=== PATIENT | female | born 1980 | race African-American/Black ===

== ENCOUNTER 2017-07-17 11:22 | Emergency (ER) | payer MEDICAID ==
[2017-07-17] MEDS ORDERED: KETOROLAC TROMETHAMINE 60 MG/2 ML SDV IM ONE (13:00)
[2017-07-17] MEDS ORDERED: DEXAMETHASONE SOD PHOS INJ 10 MG/1 ML VIAL IM ONE (13:00)
--- NOTE | 2017-07-17 13:05 | ER Document Report ---
ED Neck/Back Problem - General Chief Complaint: Back Injury Stated Complaint: RIB PAIN Time Seen by Provider: 07/17/17 12:17 Mode of Arrival: Ambulatory Information source: Patient Notes: 36-year-old female presents to ED for complaint of back pain mostly on the right from mid down to buttocks down the right leg 2 weeks. She denies any fall injury or lifting anything. She denies any loss of control of bowel bladder, loss of sensation to the saddle region, loss of control of legs or loss of sensation to the legs. She is being treated by the [facility] for neck pain. I have instructed her to follow-up with them concerning this pain also. TRAVEL OUTSIDE OF THE [place] IN LAST 30 DAYS: No - HPI Patient complains to provider of: Pain, Lower back Onset: Other - 2 weeks Onset: Gradual Timing: Waxing and waning Quality of pain: Sharp Severity: Moderate Pain Level: 3 Recent injury: No Associated symptoms: Radiation to leg, Lower back pain. denies: Constipation, Fever, Like prior neck/back pain - Usually pain is in her upper back and neck this is in her mid to lower back down her right leg, Motor loss, Numbness/ tingling, Radiation to arm, Radiation to chest, Sensory loss, Unable to urinate , Upper back pain Exacerbated by: Nothing Relieved by: Nothing Similar symptoms previously: Yes Recently seen / treated by doctor: Yes - In her neck but not lower back - Related Data Allergies/Adverse Reactions: amoxicillin [Amoxicillin] Allergy (Verified 07/17/17 11:31) gabapentin [From Neurontin] Allergy (Verified 07/17/17 11:32) daquan Allergy (Verified 07/17/17 11:32) morphine [Morphine] Allergy (Verified 07/17/17 11:31) Past Medical History - General Information source: Patient - Social History Smoking Status: Never Smoker Cigarette use (# per day): No Chew tobacco use (# tins/day): No Smoking Education Provided: No Frequency of alcohol use: Occasional Drug Abuse: None Lives with: Family Family History: Reviewed & Not Pertinent Patient has suicidal ideation: No Patient has homicidal ideation: No - Past Medical History Cardiac Medical History: Reports: None Pulmonary Medical History: Reports: Hx Asthma EENT Medical History: Reports: None Neurological Medical History: Reports: None Endocrine Medical History: Reports: None Renal/ Medical History: Reports: None Malignancy Medical History: Reports: None GI Medical History: Reports: None Musculoskeltal Medical History: Reports Hx Musculoskeletal Deformity Skin Medical History: Reports None Psychiatric Medical History: Reports: Hx Bipolar Disorder, Hx Schizophrenia Traumatic Medical History: Reports: None Infectious Medical History: Reports: None Past Surgical History: Reports: Hx Tubal Ligation - Immunizations Immunizations up to date: Yes Hx Diphtheria, Pertussis, Tetanus Vaccination: Yes Review of Systems - Review of Systems Constitutional: No symptoms reported EENT: No symptoms reported Cardiovascular: No symptoms reported Respiratory: No symptoms reported Gastrointestinal: No symptoms reported Genitourinary: No symptoms reported Female Genitourinary: No symptoms reported Musculoskeletal: Back pain, Muscle pain, Muscle stiffness Skin: No symptoms reported Hematologic/Lymphatic: No symptoms reported Neurological/Psychological: Other - Sciatic type nerve pain in the right leg -: Yes All other systems reviewed and negative Physical Exam - Vital signs Vitals: Temp Pulse Resp BP Pulse Ox 98.5 F 86 16 110/63 97 07/17/17 11:32 07/17/17 11:32 07/17/17 11:32 07/17/17 11:32 07/17/17 11:32 Interpretation: Normal - General General appearance: Appears well, Alert - HEENT Head: Normocephalic, Atraumatic Eyes: Normal Pupils: PERRL - Respiratory Respiratory status: No respiratory distress Chest status: Nontender Breath sounds: Normal Chest palpation: Normal - Cardiovascular Rhythm: Regular Heart sounds: Normal auscultation Murmur: No - Abdominal Inspection: Normal Distension: No distension Bowel sounds: Normal Tenderness: Nontender Organomegaly: No organomegaly - Back Back: Normal, Tender - Right lower to mid back down the right leg. No: Deformity/step-off, CVA tenderness, Vertebra tenderness, Scars, Scoliosis, Wounds - Extremities General upper extremity: Normal inspection, Nontender, Normal color, Normal ROM , Normal temperature General lower extremity: Normal inspection, Nontender, Normal color, Normal ROM , Normal temperature, Normal weight bearing. No: Angie's sign - Neurological Neuro grossly intact: Yes Cognition: Normal Orientation: AAOx4 Jayne Coma Scale Eye Opening: Spontaneous Drake Coma Scale Verbal: Oriented Jayne Coma Scale Motor: Obeys Commands Jayne Coma Scale Total: 15 Speech: Normal Motor strength normal: LUE, RUE, LLE, RLE Sensory: Normal - Psychological Associated symptoms: Normal affect, Normal mood - Skin Skin Temperature: Warm Skin Moisture: Dry Skin Color: Normal Course - Re-evaluation Re-evalutation: 07/17/17 13:09 Patient treated with Toradol and Decadron and instructed to follow-up with her primary doctor and her pain management doctor at [facility] it [place]. She states she has 600 mg ibuprofen at home that she gets from the pain center. Instructed her to use these as well as Tylenol ice packs and warm packs. Also gave her instruction for exercises for the low back. - Vital Signs Vital signs: Temp Pulse Resp BP Pulse Ox 98.5 F 86 16 110/63 97 07/17/17 11:32 07/17/17 11:32 07/17/17 11:32 07/17/17 11:32 07/17/17 11:32 Discharge - Discharge Clinical Impression: Low back pain Qualifiers: Chronicity: acute Back pain laterality: right Sciatica presence: with sciatica Sciatica laterality: sciatica of right side Qualified Code(s): M54.41 - Lumbago with sciatica, right side Condition: Stable Disposition: HOME, SELF-CARE Additional Instructions: LOW BACK PAIN: Three out of every four people will have an episode of disabling back pain during their lifetime. Most commonly the pain is due to straining of the muscles and ligaments in the low back. Usual treatment includes: (1) Rest on a firm surface. Avoid lying on your stomach. (2) Ice pack the painful area. After a few days, gentle heat may be used intermittently to relax the area, or ice packs can be continued. (3) Medication may be needed -- muscle relaxers and antiinflammatory medicines are commonly used. (4) As the back improves, exercises are prescribed to strengthen the back and abdominal muscles. Your doctor will advise you on the proper care for your back at each stage in your recovery. You may be better in a few days -- or healing may take several weeks. If new symptoms of a "herniated disc" (radiation of pain, numbness, or tingling down the back of the leg or weakness in the leg) occur, you should be re-examined. Further testing may be necessary. STEROID MEDICATION: You have been given an injection of medicine of the cortisone/steroid class. This medication is used to control inflammation or allergy. It is often continued as a pill for a short period of time, until the acute process subsides. There are usually no side effects from short-term use of cortisone-like medications. Some persons feel an increased sense of well-being and are not sleepy at bedtime. Long-term use of cortisone medications is best avoided, unless required for a severe condition. If your condition does not remit, or relapses after the course of corticosteroid medication, you should consult your physician. Toradol Injection You have been given an injection of ketorolac tromethamine (Toradol). This is an excellent, safe drug for pain control. It also has potent antiinflammatory action. You should have significant pain relief within about one hour. Toradol is not addicting and is non-sedating. It does not interfere with driving or work. Call or return if you develop itching, hives, shortness of breath, or rash. Stretching Exercises for the Back The physician has recommended that you begin stretching exercises for your back. These are often used even while the back is painful. However, you should notify the physician if the activities seem to increase your pain. PELVIC TILT: Lie flat on your back with knees bent. Tighten your stomach and buttock muscles so it flattens your lower back against the floor. Hold 10 seconds. Repeat 10 times, twice daily. KNEE RAISE: Lying on the back with knees bent, raise one knee to your chest, then the other. Hold both knees against the chest 10 seconds, then lower one knee at a time. Repeat 10 times, twice daily. PARTIAL TRUNK RAISE: Lie face down, arms at your sides. Keeping your waist on the floor, use your arms raise your chest up. Support yourself on your elbows for 30 seconds. Repeat twice daily, increasing the time to two minutes as you recover. ICE PACKS: Apply ice packs frequently against the painful area. Many different schedules are recommended, such as "20 minutes on, 20 minutes off" or "one hour ice, two hours rest." If you need to work, you may need to go longer between ice treatments. You should plan to have the area ice packed AT LEAST one fourth of the time. The ice should be applied over the wrap, tape, or splint, or over a layer of cloth -- not directly against the skin. Some ice bags have a built-in cloth and can be put directly on the skin. WARM PACKS: After approximately two days, apply gentle heat (such as a heating pad or hot water bottle) for about 20 to 30 minutes about every two hours -- at least four times daily. Warmth and elevation will help you make a more rapid recovery , and will ease the pain considerably. Do not use HOT heat, and never apply heat for longer than 30 minutes. The continuous heat can invisibly damage skin and muscles -- even when no burn is seen on the surface. Damaged muscles can make you MORE sore. FOLLOW-UP CARE: If you have been referred to a physician for follow-up care, call the physician s office for an appointment as you were instructed or within the next two days. If you experience worsening or a significant change in your symptoms, notify the physician immediately or return to the Emergency Department at any time for re-evaluation. Please call [facility] on Tuesday and schedule follow-up appointment for your lower back pain. Usually ibuprofen that you have for your back pain it will help this pain also use the stretching exercises that I have given you above and use the ice and warm packs as I described.
[2017-07-17 13:16] VITALS: BP 114/72
== END 2017-07-17 13:18 | disposition home or self-care (01) ==
LOC: ER 11:22
DX: M54.41 Lumbago with sciatica, right side (principal); Z88.6 Allergy status to analgesic agent; Z88.0 Allergy status to penicillin
CPT/HCPCS: 99283; 96372; J1885; J1100

== ENCOUNTER 2018-05-19 16:56 | Emergency (ER) | payer MEDICAID ==
[2018-05-19] MEDS ORDERED: KETOROLAC TROMETHAMINE 60 MG/2 ML SDV IM ONE (18:13)
--- NOTE | 2018-05-19 18:45 | RADIOLOGY REPORT (SQ) ---
EXAM DESCRIPTION: HIP RIGHT AP/LATERAL COMPLETED DATE/TIME: 05/19/2018 6:28 pm REASON FOR STUDY: righ hip pain COMPARISON: None. NUMBER OF VIEWS: Two views. TECHNIQUE: AP pelvis and additional frog-leg view of the right hip. LIMITATIONS: None. FINDINGS: MINERALIZATION: Normal. RIGHT HIP: No fracture or dislocation. No worrisome bone lesions. LEFT HIP: No fracture or dislocation. No worrisome bone lesions. PUBIS AND ISCHIUM: No fracture. PELVIS: No fracture. SACRUM: No fracture or dislocation. No worrisome bone lesions. LOWER LUMBAR SPINE: No fracture or dislocation. No worrisome bone lesions. No significant disc disea se. SOFT TISSUES: No findings. OTHER: No other significant finding. IMPRESSION: NEGATIVE STUDY OF THE RIGHT HIP. NO RADIOGRAPHIC EVIDENCE OF ACUTE INJURY. TECHNICAL DOCUMENTATION: JOB ID: [id number] [employer]- All Rights Reserved Reading location - IP/workstation name: [email or web address]
--- NOTE | 2018-05-19 20:11 | ER Document Report ---
ED Hip Pain/Injury - General Chief Complaint: Hip Pain Stated Complaint: RIGHT HIP PAIN Time Seen by Provider: 05/19/18 18:06 Mode of Arrival: Ambulatory Information source: Patient, Relative Notes: Patient is a 37-year-old female comes emergency room complaint right hip pain. The pain actually seems to stem from the right groin. Patient states that is very difficult to walk on her stand or even sit. She states that 3 days ago she was standing went to turn and her right foot was anchored and she twisted and felt a pop in her right groin. She had increased pain ever since then. She denies any other known injuries and denies any falls. Patient has only a history of psych which is bipolar disorder with depression. Last menstrual period was on through 10 May. TRAVEL OUTSIDE OF THE [place] IN LAST 30 DAYS: No - HPI Patient complains to provider of: Injury, Pain, Hip Occurred: Other - 3 days ago Where: Home Onset/Duration: Sudden, Persistent Quality of pain: Sharp, Throbbing Severity: Moderate Pain Level: 3 Context: Other - Twisting Symptoms prior to fall: None Skin Color: Normal Skin Temperature: Warm Rotation of extremity: Inward Pain with palpation of the pelvis: Yes Associated Symptoms: None - Related Data Allergies/Adverse Reactions: amoxicillin [Amoxicillin] Allergy (Verified 05/19/18 17:03) gabapentin [From Neurontin] Allergy (Verified 05/19/18 17:03) daquan Allergy (Verified 05/19/18 17:03) morphine [Morphine] Allergy (Verified 05/19/18 17:03) Past Medical History - General Information source: Patient, Relative - Social History Smoking Status: Former Smoker Cigarette use (# per day): No Chew tobacco use (# tins/day): No Smoking Education Provided: No Frequency of alcohol use: about 4 times a month Drug Abuse: None Lives with: Family Family History: Reviewed & Not Pertinent Patient has suicidal ideation: No Patient has homicidal ideation: No Pulmonary Medical History: Reports: Hx Asthma Renal/ Medical History: Denies: Hx Peritoneal Dialysis Musculoskeletal Medical History: Reports Hx Musculoskeletal Deformity Psychiatric Medical History: Reports: Hx Bipolar Disorder, Hx Schizophrenia Past Surgical History: Reports: Hx Tubal Ligation - Immunizations Immunizations up to date: Yes Hx Diphtheria, Pertussis, Tetanus Vaccination: Yes Review of Systems - Review of Systems Constitutional: No symptoms reported EENT: No symptoms reported Cardiovascular: No symptoms reported Respiratory: No symptoms reported Gastrointestinal: No symptoms reported Genitourinary: No symptoms reported Female Genitourinary: No symptoms reported Musculoskeletal: Joint pain, Joint swelling, Muscle pain, Muscle stiffness Skin: No symptoms reported Hematologic/Lymphatic: No symptoms reported Neurological/Psychological: No symptoms reported -: Yes All other systems reviewed and negative Physical Exam - Vital signs Vitals: Temp Pulse BP Pulse Ox 97.8 F 73 119/64 98 05/19/18 17:13 05/19/18 17:13 05/19/18 17:13 05/19/18 17:13 Interpretation: Normal - Notes Notes: Well-nourished well-developed 37-year-old obese female. - HEENT Head: Normocephalic, Atraumatic Eyes: Normal - Respiratory Respiratory status: No respiratory distress Chest status: Nontender. No: No pleuritic chest pain, Pain with deep breathing Breath sounds: Normal. No: Decreased air movement, Productive cough, Rales, Rhonchi, Stridor, Wheezing Chest palpation: Normal - Cardiovascular Rhythm: Regular Heart sounds: Normal auscultation Murmur: No - Abdominal Inspection: Normal Distension: No distension Bowel sounds: Normal Tenderness: Nontender Organomegaly: No organomegaly. No: Hepatomegaly, Splenomegaly Adult front & back diagram: 1 - Area of tenderness to palpation. - Back Back: Normal, Nontender - Extremities General upper extremity: Normal inspection, Nontender, Normal ROM, Normal strength General lower extremity: Tender, Normal color, Normal temperature. No: Normal inspection, Edema, Normal ROM, Normal strength, Normal weight bearing, Angie's sign Hip: Tender, Pain with ROM, Other - Examination patient's right hip shows her to be sitting on the cot. Legs extended. Left leg looks slightly lower than the right leg. But is not rotated internally or externally. Patient has good popliteal pulse on the right knee. Palpation of the anterior groin shows moderate amount of tenderness reproduced to the palpation. The pain distribution seems to run along the groin and into the iliac crest area. There is no sciatic pain and there is no posterior back pain no buttocks pain. All seems to be standardized right in the right hip area. There is a good pulse in the femoral pulse. No other abnormalities found. Although there is loss of strength against resistance to lifting the leg. It appears either to be a strain groin or hip flexor muscle.. No: Abrasion, Deformity, Dislocation, Ecchymosis, Instability, Laceration, Unable to bear weight Course - Re-evaluation Re-evalutation: 05/19/18 21:11 I have placed patient on a muscle relaxer some steroids and pain medication. I have instructed her to wear either a girdle or biking shorts. And have told her to follow-up with orthopedic on Tuesday if not getting better. Also told her to come back to ER over the weekend if it were to progressively get worse. - Vital Signs Vital signs: Temp Pulse Resp BP Pulse Ox 98.6 F 65 18 103/57 L 99 05/19/18 20:35 05/19/18 20:35 05/19/18 20:35 05/19/18 20:35 05/19/18 20:35 Discharge - Discharge Clinical Impression: Strain of right hip Qualifiers: Encounter type: initial encounter Qualified Code(s): S76.011A - Strain of muscle, fascia and tendon of right hip, initial encounter Hip flexor tendinitis Qualifiers: Laterality: right Qualified Code(s): M76.891 - Other specified enthesopathies of right lower limb, excluding foot Condition: Stable Disposition: HOME, SELF-CARE Instructions: Inguinal Strain ([facility]), Muscle Strain ([facility]), Tendon Strain ([facility]) Additional Instructions: Home and rest. Ice to the area 3 times a day as we discussed. Light stretching also as we discussed. This could be a tendinitis could be a hip flexor strain may take some time for her to get better. Highly suggest that you contact the orthopedist that this is still bothering you on Tuesday or Tuesday. As we also discussed you may wear a girdle which will help with this and/or biking shorts will give some support as well. At this point since his been 3 days he may also be is a whirlpool or moist heat. Should you have any concerns or problems return to ER for recheck. Prescriptions: Cyclobenzaprine HCl [Flexeril 10 mg Tablet] 10 mg PO TIDP PRN #21 tablet PRN Reason: Hydrocodone/Acetaminophen [Chandler 5-325 mg Tablet] 1 tab PO Q6 #8 tablet Prednisone [Sterapred Ds] 10 mg PO ASDIR PRN #1 tab.ds.pk PRN Reason: Referrals: SHAGGY CISSE, [facility] [Primary Care Provider] - Follow up as needed
[2018-05-19 20:39] VITALS: BP 103/57
== END 2018-05-19 20:40 | disposition home or self-care (01) ==
LOC: ER 16:56
DX: S76.011A Strain of muscle, fascia and tendon of right hip, initial encounter (principal); M76.891 Other specified enthesopathies of right lower limb, excluding foot; X50.0XXA Overexertion from strenuous movement or load, initial encounter; Y92.009 Unspecified place in unspecified non-institutional (private) residence as the place of occurrence of the external cause; Z88.0 Allergy status to penicillin; Z88.6 Allergy status to analgesic agent; Z98.51 Tubal ligation status
CPT/HCPCS: 99283; 96372; 73502; J1885

== ENCOUNTER 2019-03-22 10:45 | Emergency (ER) | payer MEDICAID ==
[2019-03-22] MEDS ORDERED: KETOROLAC TROMETHAMINE 60 MG/2 ML SDV IM ONE (11:53)
[2019-03-22 11:58] VITALS: BP 109/66
--- NOTE | 2019-03-22 12:36 | ER Document Report ---
HPI - HPI Patient complains to provider of: right neck pain Time Seen by Provider: 03/22/19 11:37 Onset: Other - 2 weeks Onset/Duration: Constant, Persistent Quality of pain: Burning, Cramping Severity: Moderate Pain Level: 3 Context: 38-year-old female with a history of bulging discs in her neck here for acute exacerbation of her chronic neck pain that radiates down her right arm for 2 weeks. She was previously on pain management a year or so ago and now is awaiting to get back into pain management again for her chronic neck pain. She states her symptoms have been worse for the last 2 weeks. Denies any new injury or trauma. Feels like her usual flareups when they happen, nothing different. pain just isn't controlled with otc meds any longer. She states that when she was on pain management she is on oxycodone and that worked well. She also takes Valium 5 mg 3 times daily and has been on for many years. She states the valium alone isn't helping her pain much but does some. She does have a TENS unit. She states the earliest that pain management could get her back in was April 16 and she is just here requesting some pain control until she get into pain management again. No numbness, tingling, or weakness. No spinal surgeries. No fever, headache or rash. No recent illness and no other changes in medication or diet. No vision changes or other changes in neurologic or ams. Pain worse with movement and palpation. Better with rest. No other complaints at this time. denies . no pain anywhere else. hasn't sought care until now. states when she has come in here before they gave her a toradol shot and that helped and she would like another one today. denies iv drug use. she is right handed. states steroids don't help. Exacerbated by: Movement Relieved by: Remaining still Similar symptoms previously: Yes Recently seen / treated by doctor: No - ROS Systems Reviewed and Negative: Yes All other systems reviewed and negative - to include 10 systems, unless mentioned in the hpi - REPRODUCTIVE Reproductive: DENIES: : Past Medical History - General Information source: Patient, [facility], [facility] Records - Social History Smoking Status: Unknown if Ever Smoked Frequency of alcohol use: None Drug Abuse: None Family History: Reviewed & Not Pertinent Patient has suicidal ideation: No Patient has homicidal ideation: No - Past Medical History Cardiac Medical History: Reports: Hx Hypertension Pulmonary Medical History: Reports: Hx Asthma Neurological Medical History: Reports: None Endocrine Medical History: Denies: Hx Diabetes Mellitus Type 1, Hx Diabetes Mellitus Type 2 Renal/ Medical History: Denies: Hx Peritoneal Dialysis Musculoskeletal Medical History: Reports Hx Arthritis, Reports Hx Muscle Spasm, Reports Other - Degenerative disc diseace, chronic right cervical radiculopathy Psychiatric Medical History: Reports: Hx Bipolar Disorder, Hx Schizophrenia Past Surgical History: Reports: Hx Tubal Ligation - Immunizations Immunizations up to date: Yes Hx Diphtheria, Pertussis, Tetanus Vaccination: Yes Vertical Provider Document - CONSTITUTIONAL Exam Limitations: No Limitations Notes: >>>> PHYSICAL_EXAM: GENERAL_APPEARANCE: well_nourished, alert, cooperative, no_acute_distress, mild_obvious_discomfort. pleasant, obese young black female, smiling, speaking in full sentences, in no sign of resp distress, appears uncomfortable with movement of her neck but othewise not toxic. VITALS: reviewed, see vital signs table. HEAD: no_swelling\tenderness on the head. normocephalic. atraumatic. no rodrigues signs. no raccoons eyes. EARS: canals_clear_bilat, TMs_clear. no hemotympanum EYES: PERRL, EOMI, conjunctiva_clear. NOSE: no_nasal_discharge. MOUTH: (-)decreased moisture. THROAT: no_tonsilar_inflammation, no_airway_obstruction. no_lymphadenopathy NECK: supple, no midline neck_tenderness, no step-offs or deformities. There is tenderness to palpation of the right paracervical musculature. Spasm noted. Palpation here represents patient's exactly. Slight decreased range of motion in her neck on lateral bending and rotation secondary only to pain. No torticollis. No sign of Adrian's or mastoiditis. (-)thyromegaly. full strength. no jvd. no carotid bruit. no meningeal signs. no sign of central cord syndrome. BACK: no_back_tenderness. CHEST_WALL: no_chest_tenderness. no overlying skin changes LUNGS: no_wheezing, ctab (-)accessory muscle use, good air exchange bilateral. HEART: normal_rate, normal_rhythm, ABDOMEN: normal_BS, soft, no_abd_tenderness, (-)guarding, (-)rebound, no distension or peritoneal signs. no cva ttp EXTREMITIES: strength 5/5 in all_extremities, good pulses in all_extremities, no_swelling\tenderness in the extremities, no_edema. full rom. normal gait. good pulses. brisk cap refill. 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 neg drop can test. neg speed and yergason tests. no atrophy. NEURO: motor and sensation intact, cranial nerves 2-12 intact, cerebellar fxn intact, reflexes wnl SKIN: warm, dry, good_color, no_rash. no grossly visible overlying skin changes to suggest trauma. MENTAL_STATUS: speech_clear, oriented_X_3, normal_affect, responds_appropriately to questions. - INFECTION CONTROL TRAVEL OUTSIDE OF THE [place] IN LAST 30 DAYS: No Course - Re-evaluation Re-evalutation: 03/22/19 12:36 Pt here for an acute exacerbation of her chronic right-sided neck pain with radiculopathy, nothing new, same exact sx when it flares up, no fall or trauma. pain just not controlled with otc meds. she is now waiting to get back into pain management-has an apt apr 16 and states that's the soonest they could get her in. She improved with Toradol here. She is neuro nonfocal. Pain reproducible in the musculature and likely musculoskeletal. She has a TENS unit at home she can continue to take. Ice/heat to the area. will dc with just a few vicodin. ga ve medication precautions for this. advised of our narcotic policy and advised this would likely be the last time she got narcotic pain meds for this complaint here and stressed the importance of f/u with pain management closely without fail. Secondary to her already being on valium, i told her i do not feel comfortable prescribing her any another muscle relaxers in addition to this due to concern for respiratory depression. she refused steroids. advised to f/u with pcp/pain management in 1-2 days. return for any worsening symptoms. vss. well appearing. satting well on ra. neurononfocal. pt understands and agrees to plan. according to the [place] drug monitoring database, she gets monthly Valium 5 mg #90 with the last being 02/15/2019, the last time she got Vicodin was 05/20/2018 for 8 Vicodin, she got Percocet 7.5 mg #60 back in November 2017 however no other pain medicine since. On reexam, pt improved with tx listed. remained stable. nontoxic. well appearing. pain controlled. tolerating po. requesting to go home. neurononfocal. no sign of spinal cord involvement, cauda equina, or central cord syndrome. Documentation achieved through voice recording which my lead to some occasional accidental typographical errors. Extensive efforts have been made to proof read documentation to make sure these are the least as possible. Category Date Time Status Ketorolac Tromethamine [Toradol Inj/Pf 60 mg/2 ml Sdv] Med 03/22/19 11:53 Discontinued 60 mg IM NOW ONE - Vital Signs Vital signs: Temp Pulse Resp BP Pulse Ox 97.7 F 66 20 109/66 98 03/22/19 11:57 03/22/19 11:57 03/22/19 11:57 03/22/19 11:57 03/22/19 11:57 03/22/19 12:42 Temp Pulse Pulse Resp BP BP Pulse Ox 03/22/19 11:57 97.7 F 66 20 109/66 98 03/22/19 11:18 97.8 F 70 20 106/62 96 Discharge - Discharge Clinical Impression: Right cervical radiculopathy Condition: Good Disposition: HOME, SELF-CARE Instructions: Radiculopathy ([facility]) Additional Instructions: Ice/heat to your neck. Continue to use your TENS unit. Do not drive, take Tylenol, operate machinery, or work while taking the Vicodin. you can continue to use your Valium as prescribed as needed for muscle relaxation. Call your pain management doctor for a sooner appointment. Follow-up with PCP/pain management in 1 to 2 days. Return for any worsening symptoms. Prescriptions: Hydrocodone/Acetaminophen [[place] 5-325 mg Tablet] 1 tab PO Q6 PRN #10 tablet PRN Reason: For Pain Referrals: SHAGGY CISSE FNP [Primary Care Provider] - Follow up as needed
== END 2019-03-22 12:53 | disposition home or self-care (01) ==
LOC: ER 10:45
DX: M54.12 Radiculopathy, cervical region (principal); I10 Essential (primary) hypertension; Z98.51 Tubal ligation status
CPT/HCPCS: 99283; 96372; J1885

== ENCOUNTER 2019-09-03 12:51 | Emergency (ER) | payer MEDICAID ==
[2019-09-03 13:15] VITALS: BP 114/68
[2019-09-03] MEDS ORDERED: OXYCODONE-ACETAMINOPHEN 5-325 MG TABLET PO ONE (13:38)
[2019-09-03] MEDS ORDERED: KETOROLAC TROMETHAMINE 60 MG/2 ML SDV IM ONE (13:38)
[2019-09-03] MEDS ORDERED: METHOCARBAMOL 750 MG TABLET PO ONE (13:38)
--- NOTE | 2019-09-03 14:45 | ER Document Report ---
HPI - HPI Time Seen by Provider: 09/03/19 13:32 Pain Level: 5 Notes: 38-year-old female patient presenting with right upper neck pain, right back pain, right leg pain and right low back pain that started approximately 3 days ago. Patient reports she has a history of a herniated cervical disc that flares up frequently when it rains. She also reports osteoarthritis in her back. She currently sees pain management. She states that occasionally she gets flares like this and she comes in for prednisone prescriptions. Denies any loss of control of bowel or bladder, denies any saddle anesthesia. Ambulates without difficulty. - CONSTITUTIONAL Constitutional: DENIES: Fever - REPRODUCTIVE Reproductive: DENIES: : - MUSCULOSKELETAL Musculoskeletal: REPORTS: Extremity pain Past Medical History - General Information source: Patient - Social History Smoking Status: Former Smoker Frequency of alcohol use: Occasional Family History: Reviewed & Not Pertinent Patient has suicidal ideation: No Patient has homicidal ideation: No - Past Medical History Cardiac Medical History: Reports: Hx Hypertension Pulmonary Medical History: Reports: Hx Asthma Endocrine Medical History: Denies: Hx Diabetes Mellitus Type 1, Hx Diabetes Mellitus Type 2 Renal/ Medical History: Denies: Hx Peritoneal Dialysis Musculoskeletal Medical History: Reports Hx Arthritis, Reports Hx Muscle Spasm, Reports Hx Musculoskeletal Deformity Psychiatric Medical History: Reports: Hx Bipolar Disorder, Hx Schizophrenia Past Surgical History: Reports: Hx Tubal Ligation - Immunizations Immunizations up to date: Yes Hx Diphtheria, Pertussis, Tetanus Vaccination: Yes Vertical Provider Document - CONSTITUTIONAL Notes: PHYSICAL EXAMINATION: GENERAL: Well-appearing, well-nourished and in no acute distress. HEAD: Atraumatic, normocephalic. EYES: Pupils equal round extraocular movements intact, conjunctiva are normal. ENT: Nares patent NECK: Normal range of motion LUNGS: No respiratory distress Musculoskeletal: Normal range of motion, tenderness to the musculoskeletal area from the right neck down into the right scapula, right thoracic area and right lumbar spine. No vertebral tenderness, step-off or deformity. No focal neurological deficits. NEUROLOGICAL: Normal speech, normal gait. PSYCH: Normal mood, normal affect. SKIN: Warm, Dry, normal turgor, no rashes or lesions noted. - INFECTION CONTROL TRAVEL OUTSIDE OF THE [place] IN LAST 30 DAYS: No Course - Re-evaluation Re-evalutation: Patient will be treated conservatively with prednisone and muscle relaxers, will be discharged home, encourage close follow-up with primary care and pain management team. - Vital Signs Vital signs: Temp Pulse Resp BP Pulse Ox 98.4 F 73 18 114/68 100 09/03/19 13:14 09/03/19 13:14 09/03/19 13:14 09/03/19 13:14 09/03/19 13:14 Discharge - Discharge Clinical Impression: Neck strain Qualifiers: Encounter type: initial encounter Qualified Code(s): S16.1XXA - Strain of muscle, fascia and tendon at neck level, initial encounter Condition: Stable Disposition: HOME, SELF-CARE Additional Instructions: Please take medications as prescribed. Please keep any and all appointments that you have with both your pain management team and your primary care team. Prescriptions: Prednisone [Deltasone 20 mg Tablet] 3 tab PO DAILY 5 Days #15 tablet Methocarbamol [Robaxin 750 mg Tablet] 750 mg PO Q4 #30 tablet Referrals: SHAGGY CISSE FNP [COMMUNITY BASED STAFF] - Follow up as needed
== END 2019-09-03 14:51 | disposition home or self-care (01) ==
LOC: ER 12:51
DX: S16.1XXA Strain of muscle, fascia and tendon at neck level, initial encounter (principal); M54.2 Cervicalgia; M54.9 Dorsalgia, unspecified; M79.604 Pain in right leg; M54.5 Low back pain; X58.XXXA Exposure to other specified factors, initial encounter; Z87.891 Personal history of nicotine dependence; I10 Essential (primary) hypertension; J45.909 Unspecified asthma, uncomplicated
CPT/HCPCS: 99283; 96372; J1885; J3490

== ENCOUNTER 2019-09-22 13:59 | Emergency (ER) | payer MEDICAID ==
--- NOTE | 2019-09-22 14:46 | ER Document Report ---
HPI - HPI Patient complains to provider of: Ankle injury Time Seen by Provider: 09/22/19 14:41 Notes: 38-year-old female to the emergency department with complaints of right ankle injury that occurred yesterday morning. She states that she missed a step and twisted her foot underneath her. She states she was able to walk on the foot all day yesterday but when she got home and took her tennis shoe off she had increasing pain and swelling. Since then she has not been able to bear any weight. She has been using her daughter's crutches. She denies any other injuries. She states she has been taking Tylenol and Excedrin for the pain which has not helped. - ROS ROS below otherwise negative: No Systems Reviewed and Negative: Yes All other systems reviewed and negative - CONSTITUTIONAL Constitutional: DENIES: Fever, Chills - EENT EENT: DENIES: Sore Throat, Ear Pain, Nasal Drainage-Clear, Nasal Drainage- Purulent, Congestion, Eye problems - NEURO Neurology: DENIES: Headache - CARDIOVASCULAR Cardiovascular: DENIES: Chest pain - RESPIRATORY Respiratory: DENIES: Trouble Breathing, Coughing - GASTROINTESTINAL Gastrointestinal: DENIES: Abdominal Pain, Nausea, Patient vomiting, Diarrhea, Constipation - REPRODUCTIVE Reproductive: DENIES: : - MUSCULOSKELETAL Musculoskeletal: REPORTS: Extremity pain Notes: See HPI - DERM Skin Color: Normal Skin Problems: None Past Medical History - General Information source: Patient - Social History Smoking Status: Never Smoker Frequency of alcohol use: None Drug Abuse: None Family History: Reviewed & Not Pertinent - Past Medical History Cardiac Medical History: Reports: Hx Hypertension Pulmonary Medical History: Reports: Hx Asthma Endocrine Medical History: Denies: Hx Diabetes Mellitus Type 1, Hx Diabetes Mellitus Type 2 Renal/ Medical History: Denies: Hx Peritoneal Dialysis Musculoskeletal Medical History: Reports Hx Arthritis, Reports Hx Muscle Spasm, Reports Hx Musculoskeletal Deformity Psychiatric Medical History: Reports: Hx Bipolar Disorder, Hx Schizophrenia Past Surgical History: Reports: Hx Tubal Ligation - Immunizations Immunizations up to date: Yes Hx Diphtheria, Pertussis, Tetanus Vaccination: Yes Vertical Provider Document - CONSTITUTIONAL Agree With Documented VS: Yes Exam Limitations: No Limitations General Appearance: WD/WN, No Apparent Distress - INFECTION CONTROL TRAVEL OUTSIDE OF THE [place] IN LAST 30 DAYS: No - HEENT HEENT: Atraumatic, Normal ENT Exam, Normocephalic, PERRLA - NECK Neck: Normal Inspection, Supple - RESPIRATORY Respiratory: Breath Sounds Normal, No Respiratory Distress. negative: Rales, Rhonchi, Wheezing - CARDIOVASCULAR Cardiovascular: Regular Rate, Regular Rhythm, No Murmur - GI/ABDOMEN Gastrointestinal: Abdomen Soft, Abdomen Non-Tender - BACK Back: Normal Inspection - MUSCULOSKELETAL/EXTREMETIES Notes: There is tenderness to palpation over the anterior right ankle with noted edema. There is no ecchymosis. There is also tenderness along the right metacarpal. Patient can wiggle all toes. DP pulses are intact and equal. Cap refill is less than 2 seconds. She is nontender to palpation over the right - NEURO Level of Consciousness: Awake, Alert Motor/Sensory: No Motor Deficit, No Sensory Deficit - DERM Integumentary: Warm, Dry, No Rash Course - Re-evaluation Re-evalutation: 09/22/19 Impression: Right ankle sprain likely grade [address]. [address] an ankle stirrup and on crutches. Encouraged rest, elevation, compression, ice. Patient agrees with the plan. Orthopedic follow-up. - Vital Signs Vital signs: Temp Pulse Resp BP Pulse Ox 98.6 F 75 18 121/64 98 09/22/19 14:09 09/22/19 14:09 09/22/19 14:09 09/22/19 14:09 09/22/19 14:09 Procedures - Immobilization Right Ankle Pre-Proc Neuro Vasc Exam: Normal Immobilizer type: Ankle stirrup Performed by: PCT Post-Proc Neuro Vasc Exam: Normal Alignment checked and good: Yes Discharge - Discharge Clinical Impression: Right ankle sprain Qualifiers: Encounter type: initial encounter Involved ligament of ankle: unspecified liga ment Qualified Code(s): S93.401A - Sprain of unspecified ligament of right ankle, initial encounter Condition: Stable Disposition: HOME, SELF-CARE Instructions: Sprained Ankle ([facility]) Additional Instructions: Rest, ice, elevate and use splint. Use crutches. Take medicines as prescribed for pain. Ice for 20 minutes at a time 3 times a day. Follow-up with orthopedist. Prescriptions: Naproxen [Naprosyn] 500 mg PO BID #20 tablet Forms: Return to Work Referrals: FILIBERTO NICHOLS PA-C [Primary Care Provider] - Follow up in 3-5 days HAILEY ARVIZU JR, DO [ACTIVE PROVISIONAL STAFF] - Follow up as needed
--- NOTE | 2019-09-22 15:26 | RADIOLOGY REPORT (SQ) ---
EXAM DESCRIPTION: ANKLE RIGHT COMPLETE COMPLETED DATE/TIME: 09/22/2019 3:10 pm REASON FOR STUDY: right foot and ankle injury COMPARISON: None. NUMBER OF VIEWS: Three views. TECHNIQUE: AP, lateral, and oblique radiographic images acquired of the right ankle. LIMITATIONS: None. FINDINGS: MINERALIZATION: Normal. BONES: No acute fracture or dislocation. No worrisome bone lesions. JOINTS: No effusions. SOFT TISSUES: No soft tissue swelling. No foreign body. OTHER: No other significant finding. IMPRESSION: NEGATIVE STUDY OF THE RIGHT ANKLE. NO RADIOGRAPHIC EVIDENCE OF ACUTE INJURY. TECHNICAL DOCUMENTATION: JOB ID: [id number] [employer]- All Rights Reserved Reading location - IP/workstation name: [email or web address]
--- NOTE | 2019-09-22 15:27 | RADIOLOGY REPORT (SQ) ---
EXAM DESCRIPTION: FOOT RIGHT COMPLETE COMPLETED DATE/TIME: 09/22/2019 3:10 pm REASON FOR STUDY: right foot and ankle injury COMPARISON: None. NUMBER OF VIEWS: Three views. TECHNIQUE: AP, lateral and oblique radiographic images acquired of the right foot. LIMITATIONS: None. FINDINGS: MINERALIZATION: Normal. BONES: No acute fracture or dislocation. No worrisome bone lesions. JOINTS: No effusions. SOFT TISSUES: No soft tissue swelling. No foreign body. OTHER: No other significant finding. IMPRESSION: NEGATIVE STUDY OF THE RIGHT FOOT. NO RADIOGRAPHIC EVIDENCE OF ACUTE INJURY. TECHNICAL DOCUMENTATION: JOB ID: [id number] [employer]- All Rights Reserved Reading location - IP/workstation name: [email or web address]
[2019-09-22] MEDS ORDERED: NAPROXEN 250 MG TABLET PO ONE (15:50)
[2019-09-22 16:35] VITALS: BP 124/68
== END 2019-09-22 16:36 | disposition home or self-care (01) ==
LOC: ER 13:59
PROC: 2W3QX1Z Immobilization of Right Lower Leg using Splint (ICD-10-PCS; principal; 2019-09-22)
DX: S93.401A Sprain of unspecified ligament of right ankle, initial encounter (principal); X50.1XXA Overexertion from prolonged static or awkward postures, initial encounter; I10 Essential (primary) hypertension; J45.909 Unspecified asthma, uncomplicated
CPT/HCPCS: 99283; 73610; 73630; 29515; J3490